=== PATIENT | male | born 1955 | race Caucasian/White ===

== ENCOUNTER 2018-08-05 11:03 | Day surgery (SDC) | payer BC ==
[~2018-08-05] VITALS: Ht 175.3 cm; Wt 97.4 kg
[~2018-08-05 11:03] MED LIST: AMLO5 PO; HYDCHL25 PO; LOSARTAN POTAS100 MG PO; Viagra100 MG PO
== END 2018-08-05 14:14 | disposition home or self-care (01) ==
LOC: ORSCSDS 11:03
PROVIDERS: Surgery
PROC: 0DBM8ZX Excision of Descending Colon, Via Natural or Artificial Opening Endoscopic, Diagnostic (ICD-10-PCS; principal; 2018-08-05 13:00)
PROC: 0DBH8ZX Excision of Cecum, Via Natural or Artificial Opening Endoscopic, Diagnostic (ICD-10-PCS; principal; 2018-08-05 13:00)
DX: Z12.11 Encounter for screening for malignant neoplasm of colon (principal); Z86.010 Personal history of colon polyps; D12.0 Benign neoplasm of cecum; D12.4 Benign neoplasm of descending colon; I10 Essential (primary) hypertension; Z79.899 Other long term (current) drug therapy
CPT/HCPCS: 88305; J7120

== ENCOUNTER 2024-11-01 08:30 | Day surgery (SDC) | payer OTHER ==
[~2024-11-01] VITALS: Ht 175.3 cm; Wt 94.5 kg
[~2024-11-01 08:30] MED LIST changes: +Lactated Ringer's 1,000 ML IV SCH
[2024-11-01] MEDS ORDERED: METF500 PO (09:07)
[2024-11-01 09:14] VITALS: BP 134/91
[2024-11-01] MEDS ORDERED: Midazolam HCl 1MG / ML 2ML Vial ONE (09:37)
[2024-11-01] MEDS ORDERED: propofoL 40 ML IV ONE (09:37)
[2024-11-01] MEDS ORDERED: Midazolam HCl 1MG / ML 2ML Vial IV ONE (09:45)
--- NOTE | 2024-11-01 09:52 | NUR ---
11/01/24 0952 Trixie Eugene 0943 CONFIRMED AND REVIEWED H&P, MEDCICATIONS, ALLERGIES, MEDICAL HISTORY, RESPIRATORY HISTORY, VITAL SIGNS, 3-LEAD EKG, CONSENTS, AND PHYSICIAN ORDERS. PATIENT CONFIRMS NPO STATUS AND AGREES WITH SCHEDULED PROCEDURE. MONITOR INTACT WITH CONTINUOUS PULSE OXIMETRY, CAPNOGRAPHY, 3-LEAD EKG, INTERMITTENT BP. SUPPLEMENTAL O2 TO BE TITRATED THROUGHOUT PROCEDURE TO MAINTAIN O2 SATURATION ABOVE 90%. PATIENT DETERMINED TO BE ASA APPROPRIATE FOR PROPOFOL SEDATION PRIOR TO START OF PROCEDURE BY DR. MCMILLAN. MALLAMPATI CLASS 3 AIRWAY: VISUALIZATION OF ONLY THE BASE OF THE UV[place].
[2024-11-01 10:09] VITALS: BP 121/88
--- NOTE | 2024-11-01 10:33 | NUR ---
1025 Discharge instructions reviewed with patient. Patient verbalizes understanding. Copy given to patient to take home. Patient up to Ambulate independently. Gait steady. Discharged via wheelchair to private car for ride home.
== END 2024-11-01 10:25 | disposition home or self-care (01) ==
LOC: ORSCMMR 08:30 → ORD 09:30 → ORSCMMR 09:30
PROVIDERS: Internal Medicine Gastroenterology
PROC: 0DJD8ZZ Inspection of Lower Intestinal Tract, Via Natural or Artificial Opening Endoscopic (ICD-10-PCS; principal; 2024-11-01 09:30)
DX: Z12.11 Encounter for screening for malignant neoplasm of colon (principal); Z86.0100 Personal history of colon polyps, unspecified; K57.30 Diverticulosis of large intestine without perforation or abscess without bleeding; K64.8 Other hemorrhoids; E11.9 Type 2 diabetes mellitus without complications; I10 Essential (primary) hypertension; Z87.891 Personal history of nicotine dependence; Z79.899 Other long term (current) drug therapy
CPT/HCPCS: 82947; J2250; J2704; J7120